=== PATIENT | female | born 1990 | race Caucasian/White ===

== ENCOUNTER → 2016-11-09 | Outpatient (CLI) | payer SELFPAY ==
--- NOTE | 2016-11-09 10:20 | CR ---
EXAMINATION: Right ankle HISTORY: Hardware COMPARISON: 09/29/2016 TECHNIQUE: 2 views FINDINGS/IMPRESSION: Screw and plate hardware fixate the distal fibula. There is a tiny stable poste rior malleolus fracture identified and a small ossific density projecting over the anterior tibiotal ar joint. Overall position and alignment appear unchanged with an intact ankle mortise.
== END ==
LOC: MW.CHORTHO 07:51
PROVIDERS: ATTEND Physician Assistant
DX: Z96.7 Presence of other bone and tendon implants (principal); Z87.81 Personal history of (healed) traumatic fracture; S82.891D Other fracture of right lower leg, subsequent encounter for closed fracture with routine healing
CPT/HCPCS: 73600-26-RT; 73600-RT